=== PATIENT | male | born 1975 | race Caucasian/White ===

== ENCOUNTER 2019-08-21 14:05 | Emergency (ER) | payer BC ==
--- NOTE | 2019-08-21 14:48 | Emergency Department Record ---
History of Present Illness - General Chief Complaint: Laceration(s) Stated Complaint: LT HAND LACERATION Time Seen by Provider: 08/21/19 14:13 Source: Patient Mode of Arrival: Ambulatory Limitations: No limitations - History of Present Illness Initial Commments: The patient cut his L thumb and 2nd finger tip on a saw blade a half hour ago. He denies any numbness or tingling and his Td is UTD. Onset/Timin -: Minutes(s) Place: Home Context: Accidental Associated Symptoms: None - Delmis Coma Scale Eye Response: (4) Open spontaneously Motor Response: (6) Obeys commands Verbal Response: (5) Oriented Delmis Total: 15 - Related Data Hx Tetanus Toxoid Vaccination: Yes Year of Tetanus Vaccination: 2014 Patient Tetanus UTD (within 5 yrs): Yes Previous Rx's Medication Instructions Recorded Cephalexin [Keflex] 500 mg PO TID #15 cap 08/21/19 Allergies Allergy/AdvReac Type Severity Reaction Status Date / Time No Known Drug Allergies Allergy Verified 08/21/19 14:17 Travel Screening - Travel/Exposure Within Last 30 Days Have you traveled within the last 30 days?: No Review of Systems Constitutional: Denies: Chills, Fever Past Medical History - SOCIAL HISTORY Smoking Status: Never smoker Alcohol Use: None Drug Use: None - RESPIRATORY Hx Respiratory Disorders: No - CARDIOVASCULAR Hx Cardio Disorders: Yes Hx Hypertension: Yes - NEURO Hx Neuro Disorders: No - GI Hx GI Disorders: No - Hx Genitourinary Disorders: No - ENDOCRINE Hx Endocrine Disorders: No - MUSCULOSKELETAL Hx Musculoskeletal Disorders: No - PSYCH Hx Psych Problems: No - HEMATOLOGY/ONCOLOGY Hx Hematology/Oncology Disorders: No Family Medical History Any Significant Family History?: No Physical Exam - General General Appearance: Alert, Cooperative, No acute distress - Head Head exam: Atraumatic - Eye Eye exam: Normal appearance - Extremities Extremities exam: Full ROM, Tenderness (There is tenderness to the L thumb pad and there is a superficial linear 1.5 cm lac over the pad. The thumb is NVI with normal DIP flexion and extension.). negative: Normal inspection (There is a superficial abrasion type of lac to the L 2nd finger tip. The lac is not thru the dermis. There is nothing to suture. ) Course Vital Signs 08/21/19 14:12 Temperature 98.4 F Pulse Rate 72 Respiratory 20 Rate Blood Pressure 169/111 Pulse Ox 97 - Reevaluation(s) Reevaluation #1: Procedure note: The L thumb and 2nd finger were anesth. with 3 cc's Lido 1% u sing a digital block technique. The L 2nd finger lac was cleansed with betadine and sterile saline. There was nothing to suture and the lac was basically an abrasion of the skin of the tip. The L thumb pad lac was cleansed with betadine and saline and the lac was explored. The lac was not into the muscle and quite superficial. It was closed with 4 4.0 nylon sutures. There were no complications. 08/21/19 14:51 Reevaluation #2: I did discuss the need to keep the fingers dry for 2 days and watch for signs of infection. 08/21/19 14:54 Disposition Disposition: Discharge Clinical Impression: Laceration of thumb Qualifiers: Encounter type: initial encounter Damage to nail status: without damage Foreign body presence: without foreign body Laterality: left Qualified Code(s): S 61.012A - Laceration without foreign body of left thumb without damage to nail, initial encounter Disposition: Home, Self-Care Condition: (2) Stable Instructions: Laceration (ED) Additional Instructions: Keep dry for 2 days then no soaking or swimming. Use Tylenol or Motrin for pain. Please take the Keflex as directed and have the sutures removed in 10 days. Return to the ER for any signs of infection. Prescriptions: Cephalexin [Keflex] 500 mg PO TID #15 cap Forms: Patient Portal Access Time of Disposition: 14:48 Quality - Quality Measures Quality Measures: N/A - Blood Pressure Screening View Details: Yes Does Patient Have Any of the Following: Active Dx of HTN Blood Pressure Classification: Hypertensive Reading Systolic Measurement: 169 Diastolic Measurement: 111 Screening for High Blood Pressure: Patient Exclusion, Hx of HTN [[id number]]
== END 2019-08-21 15:41 | disposition home or self-care (01) ==
LOC: ER 14:05
DX: S61.012A Laceration without foreign body of left thumb without damage to nail, initial encounter (principal); S60.411A Abrasion of left index finger, initial encounter; W31.2XXA Contact with powered woodworking and forming machines, initial encounter; Y92.009 Unspecified place in unspecified non-institutional (private) residence as the place of occurrence of the external cause; I10 Essential (primary) hypertension
CPT/HCPCS: 12001; 99283

== ENCOUNTER 2019-08-31 10:46 | Emergency (ER) | payer BC ==
--- NOTE | 2019-08-31 10:52 | Emergency Department Record ---
History of Present Illness - General Chief Complaint: Suture removal Stated Complaint: SUTURE REMOVAL Time Seen by Provider: 08/31/19 10:49 Source: Patient Mode of arrival: Ambulatory Limitations: No limitations - History of Present Illness Initial Comments: 44 yo presents for wound evaluation for suture removal. No complaints since the original repair. No abnormal pain, redness or drainage. MD Complaint: Suture/staple removal, Wound re-check -: Week(s) Initial Visit For: Laceration Returns Today for: Staple/stitch removal, Wound recheck Symptoms Since Prior Visit: No new symptoms Associated Symptoms: None - Related Data Allergies Allergy/AdvReac Type Severity Reaction Status Date / Time No Known Drug Allergies Allergy Verified 08/31/19 10:48 Review of Systems Constitutional: Denies: Fever ENT: Denies: Congestion Respiratory: Denies: Cough Gastrointestinal: Denies: Diarrhea, Nausea, Vomiting Musculoskeletal: Denies: Arthralgia, Myalgia Skin: Denies: Bruising, Change in color, Rash Neurological: Denies: Numbness, Tingling Hematological/Lymphatic: Denies: Easy bleeding, Easy bruising Past Medical History - SOCIAL HISTORY Smoking Status: Never smoker Drug Use: None - RESPIRATORY Hx Respiratory Disorders: No - CARDIOVASCULAR Hx Cardio Disorders: Yes Hx Hypertension: Yes - NEURO Hx Neuro Disorders: No - GI Hx GI Disorders: No - Hx Genitourinary Disorders: No - ENDOCRINE Hx Endocrine Disorders: No - MUSCULOSKELETAL Hx Musculoskeletal Disorders: No - PSYCH Hx Psych Problems: No - HEMATOLOGY/ONCOLOGY Hx Hematology/Oncology Disorders: No Physical Exam - General General Appearance: Alert, Oriented x3, Cooperative Limitations: No limitations - Head Head exam: Atraumatic, Normal inspection - Eye Eye exam: Normal appearance. negative: Conjunctival injection - ENT ENT exam: Normal exam - Neck Neck exam: Normal inspection - Extremities Extremities exam: Normal inspection, Normal capillary refill, Other (Healing laceration) - Neurological Neurological exam: Alert, Oriented X3 - Psychiatric Psychiatric exam: Normal affect, Normal mood - Skin Skin exam: Dry, Intact, Normal color, Warm, Other (Healing thumb laceration without signs of rendess, swelling or complication) Course - Reevaluation(s) Reevaluation #1: 08/31/19 10:50 Sutures removed without difficulty No signs of complications with healing We discussed home care while the wound continues to heal We discussed reasons to return to the ED for recheck as well Disposition Disposition: Discharge Clinical Impression: Visit for suture removal Disposition: Home, Self-Care Condition: (1) Good Instructions: Stitches Removal (ED) Additional Instructions: Return if you have any concerns with the continued healing of the laceration Forms: Patient Portal Access Time of Disposition: 10:52 Quality - Quality Measures Quality Measures: N/A - Blood Pressure Screening Does Patient Have Any of the Following: No Systolic Measurement: ~ Screening for High Blood Pressure: BP Not Documented, No Reason Given [[id number]]
== END 2019-08-31 10:58 | disposition home or self-care (01) ==
LOC: ER 10:46
DX: Z48.02 Encounter for removal of sutures (principal)